=== PATIENT | male | born 1970 | race Hispanic/Latino ===

== ENCOUNTER 2018-12-21 11:50 | Emergency (ER) | payer OTHER, MEDICARE ==
--- NOTE | 2018-12-21 11:58 | Event Note ---
ED Screening Note Date of service: 12/21/18 Time: 11:54 ED Screening Note: 48 y/o male comes in for 1 hour history of feeling weid, breaking out in a sweat difficulties in speech and memory. Patient does report that he maybe having withdraws from Ativan. Partner is reports slurred speech and breaking out in a sweat. This initial assessment/diagnostic orders/clinical plan/treatment(s) is/are subject to change based on patients health status, clinical progression and re- assessment by fellow clinical providers in the ED. Further treatment and workup at subsequent clinical providers discretion. Patient/guardian urged not to elope from the ED as their condition may be serious if not clinically assessed and managed. Initial orders include:
[2018-12-21] MEDS ORDERED: ZOFRAN IV ONE (12:13)
[2018-12-21 12:18] LABS: Basophils # (Auto) 0.1 K/mm3 (0.0-0.1); Basophils % (Auto) 0.9 % (0.0-1.8); Eosinophils # (Auto) 0.2 K/mm3 (0.0-0.4); Eosinophils % (Auto) 1.6 % (0.0-4.3); Lymphocytes # (Auto) 3.9 K/mm3 (1.2-5.4); Lymphocytes % (Auto) 28.5 % (13.4-35.0); Mean Corpuscular HGB Conc 36 % (32-34); Mean Corpuscular Volume 100 fl (84-94); Monocytes # (Auto) 0.9 K/mm3 (0.0-0.8); Monocytes % (Auto) 6.4 % (0.0-7.3); Platelet Count 268 K/mm3 (140-440); Red Blood Count 4.25 M/mm3 (3.65-5.03); Red Cell Distribution Width 14.3 % (13.2-15.2)
[2018-12-21 12:19] LABS: Hematocrit 42.7 % (35.5-45.6); Hemoglobin 15.3 gm/dl (11.8-15.2)
--- NOTE | 2018-12-21 12:25 | Cat Scan Report ---
CT HEAD WITHOUT CONTRAST INDICATION / CLINICAL INFORMATION: neuro deficits. "Code stroke" TECHNIQUE: All CT scans at this location are performed using CT dose reduction for ALARA by means of automated e xposure control. COMPARISON: None available. FINDINGS: HEMORRHAGE: No evidence of intracranial hemorrhage or extra-axial fluid collection. EXTRA-AXIAL SPACES: Cortical sulci, sylvian fissures and basilar cisterns have an unremarkable appear ance. VENTRICULAR SYSTEM: The ventricular system is of normal size and configuration. CEREBRAL PARENCHYMA: No areas of abnormal brain parenchymal attenuation are identified. There is no i ndication of recent infarction. MIDLINE SHIFT OR HERNIATION: There is no mass effect. CEREBELLUM / BRAINSTEM: Brainstem and cerebellum have an unremarkable appearance. INTRACRANIAL VESSELS:No abnormalities are identified on this noncontrast head CT. ORBITS: visualized portions of the orbits have an unremarkable appearance. SOFT TISSUES of HEAD: No significant abnormality. CALVARIUM: Evaluation of bone windows reveals no abnormalities. PARANASAL SINUSES / MASTOID AIR CELLS: Paranasal sinuses are free from inflammatory mucosal disease. Mastoid air cells are normally pneumatized. IMPRESSION: 1. Normal head CT without contrast. Code stroke patient: I called a report of this study to Dr. Mariee in the emergency department at [facility] at about 1220 Eastern standard time. Signer Name: Ariel Moore MD Signed: 12/21/2018 12:20 PM Workstation Name: [id number]
[2018-12-21 12:29] LABS: INR 0.92 (0.87-1.13); Partial Thromboplastin Time 23.3 Sec. (24.2-36.6)
[2018-12-21 12:30] LABS: Thrombin Time 14.9 Sec. (15.1-19.6)
--- NOTE | 2018-12-21 12:35 | Emergency Department Report ---
HPI - General Chief Complaint: Neuro Symptoms/Deficit Time Seen by Provider: 12/21/18 12:09 - HPI HPI: [facility] Date of Service: 12/21/2018 11:54:07 Impression: AMS, hypertension Drug w/d Metrics: Last Known Well: 12/21/2018 11:00:00 Start Time: 12/21/2018 11:53:12 Arrival Time: 12/21/2018 11:51:00 Stamp Time: 12/21/2018 11:54:07 Time First Login Attempt: 12/21/2018 12:01:00 Video Start Time: 12/21/2018 12:01:00 Symptoms: Headache, nausea, emesis NIHSS Start Assessment Time: 12/21/2018 12:06:00 Patient is not a candidate for tPA. Video End Time: 12/21/2018 12:06:00 CT head was reviewed no acute finding per my review.. Advanced imaging was not obtained as the presentation was not suggestive of Large Vessel Occlusive Disease. ER physician not notified of the decision on thrombolytics management. Comments: not iv tpa candidate or IR candidate, exam is non localizing. Our recommendations are outlined below. Recommendations: treat bzd w/d as patient has been w/o xanax for 5 days treat BP with prn meds to slowly normalize bp, work up for metabolic etiology treat headache with prn meds Disposition: Sign Out Sign Out: Discussed with Emergency Department Provider History of Present Illness: Patient is a 48 years old Male who presents with symptoms of Headache, nausea, emesis 48 yom with hx of htn, depression, bipolar mood d/o presents with headache, nausea, and emesis. He states he has been without his xanax for 5 days and never missed a dose. He takes 1 mg TID for several years. He also takes lisinopril and lexapro. Today he states his bp was elevated and he was nauseated while running errands with friends. Stroke alert called for EMS presentations Examination: 1A: Level of Consciousness - Alert; keenly responsive + 0 1B: Ask Month and Age - Both Questions Right + 0 1C: Blink Eyes & Squeeze Hands - Performs Both Tasks + 0 2: Test Horizontal Extraocular Movements - Normal + 0 3: Test Visual Crisostomo - No Visual Loss + 0 4: Test Facial Palsy (Use Grimace if Obtunded) - Normal symmetry + 0 5A: Test Left Arm Motor Drift - No Drift for 10 Seconds + 0 5B: Test Right Arm Motor Drift - No Drift for 10 Seconds + 0 6A: Test Left Leg Motor Drift - No Drift for 5 Seconds + 0 6B: Test Right Leg Motor Drift - No Drift for 5 Seconds + 0 7: Test Limb Ataxia (FNF/Heel-Godinez) - No Ataxia + 0 8: Test Sensation - Normal; No sensory loss + 0 9: Test Language/Aphasia - Normal; No aphasia + 0 10: Test Dysarthria - Normal + 0 11: Test Extinction/Inattention - No abnormality + 0 NIHSS Score: 0 Patient was informed the Neurology Consult would happen via TeleHealth consult by way of interactive audio and video telecommunications and consented to receiving care in this manner. Due to the immediate potential for life-threatening deterioration due to underlying acute neurologic illness, I spent 35 minutes providing critical care. This time includes time for face to face visit via telemedicine, review of medical records, imaging studies and discussion of findings with providers, the patient and/or family. Dr Pat Mariano [facility] ED Past Medical Hx - Past Medical History Previous Medical History?: Yes Hx Hypertension: Yes Additional medical history: Bipolar - Surgical History Past Surgical History?: Yes Additional Surgical History: colon rescetion with mass removed - Social History Smoking Status: Current Every Day Smoker Substance Use Type: None ED Review of Systems ROS: Stated complaint: WEAKNESS Other details as noted in HPI Physical Exam - Physical Exam Vital Signs: Vital Signs 12/21/18 12/21/18 11:55 12:14 Temperature 98 F 97.9 F Pulse Rate 78 70 Respiratory 16 14 Rate Blood Pressure 198/122 Blood Pressure 193/118 [Left] O2 Sat by Pulse 96 98 Oximetry ED Course Vital Signs 12/21/18 12/21/18 11:55 12:14 Temperature 98 F 97.9 F Pulse Rate 78 70 Respiratory 16 14 Rate Blood Pressure 198/122 Blood Pressure 193/118 [Left] O2 Sat by Pulse 96 98 Oximetry ED Medical Decision Making - Lab Data Result diagrams: 12/21/18 12:06 Critical care attestation.: If time is entered above; I have spent that time in minutes in the direct care of this critically ill patient, excluding procedure time. ED Disposition Clinical Impression: Headache Disposition: DC-01 TO HOME OR SELFCARE Is pt being admited?: No Condition: Stable
[2018-12-21] MEDS ORDERED: CATAPRES PO ONE (12:43)
[2018-12-21] MEDS ORDERED: TORADOL IV ONE (12:43)
[2018-12-21] MEDS ORDERED: XANAX PO ONE (12:43)
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
[2018-12-21 13:29] LABS: Creatine Kinase MB 2.3 ng/mL (0.0-4.0)
[2018-12-21 13:29] LABS: Bilirubin,Urine NEG (Negative); Blood,Urine NEG (Negative); Color,Urine Yellow (Yellow); Protein,Urine <15 mg/dL mg/dL (Negative); Urobilinogen,Urine < 2.0 mg/dL (<2.0)
[2018-12-21 13:31] LABS: BUN/Creatinine Ratio 9; Blood Urea Nitrogen 9 mg/dL (9-20); Calcium 9.6 mg/dL (8.4-10.2); Hemolysis Index 14
[2018-12-21 13:48] LABS: Amphetamine Screen,Urine PRESUMPTIVE NEGATIVE; Benzodiazepines Screen,Urine PRESUMPTIVE POSITIVE; Cocaine Screen,Urine PRESUMPTIVE NEGATIVE; Methadone Screen,Urine PRESUMPTIVE NEGATIVE; Opiate Screen,Urine PRESUMPTIVE NEGATIVE
[2018-12-21 14:14] LABS: Cannabinoid Screen,Urine PRESUMPTIVE POSITIVE
[2018-12-21 15:19] VITALS: BP 161/107
== END 2018-12-21 15:19 | disposition home or self-care (01) ==
LOC: ED 11:50
DX: F13.239 Sedative, hypnotic or anxiolytic dependence with withdrawal, unspecified (principal); I10 Essential (primary) hypertension; F31.9 Bipolar disorder, unspecified; G89.29 Other chronic pain; M54.9 Dorsalgia, unspecified; F17.200 Nicotine dependence, unspecified, uncomplicated; Z98.890 Other specified postprocedural states; Z79.899 Other long term (current) drug therapy
CPT/HCPCS: 36415; 70450; 80048; 80307; 81001; 82550; 82553; 82962; 83735; 84484; 85025; 85610; 85670; 85730; 93005; 93010; 96374; 96375; 99285; J1885; J2405; 80320; G0480